=== PATIENT | female | born 1995 | race Caucasian/White ===

== ENCOUNTER 2018-03-20 09:23 | Emergency (ER) | payer BC ==
--- NOTE | 2018-03-20 10:34 | UC ---
Respiratory Complaint HPI - HPI Summary HPI Summary: The patient is a 23-year-old female with a 3 week history of nasal congestion postnasal dripand frontal headache. She denies any chest pain or shortness of breath. She has not been febrile. She has had chills. She denies any nausea vomiting or diarrhea. She has had a cough which has been productive at times. - History of Current Complaint Chief Complaint: UCRespiratory Stated Complaint: SORE THROAT, CHILLS Time Seen by Provider: 03/20/18 10:24 Hx Obtained From: Patient Onset/Duration: Gradual Onset, Lasting Weeks - 3 Timing: Constant Severity Initially: Mild Severity Currently: Moderate Pain Intensity: 6 Pain Scale Used: 0-10 Numeric Character: Cough: Productive Aggravating Factors: Nothing Alleviating Factors: Nothing Associated Signs And Symptoms: Positive: Chills, Nasal Congestion, Hoarseness, Sinus Discomfort - Allergies/Home Medications Allergies/Adverse Reactions: Allergies Allergy/AdvReac Type Severity Reaction Status Date / Time No Known Allergies Allergy Verified 03/20/18 10:14 Home Medications: Home Medications D-Methorphan/PE/Acetaminophen [Daytime Cold-Flu Relief Sftgl] 1 each PO Q6HR PRN 03/20/18 [History Confirmed 03/20/18] Dm/Acetaminophen/Doxylamine [Nighttime Cold-Flu Rlf Sftgl] 1 each PO Q6HR PRN [History Confirmed 03/20/18] guaiFENesin LIQ* [Robitussin*] 10 ml PO Q4H PRN 03/20/18 [History Confirmed ] PMH/Surg Hx/FS Hx/Imm Hx Previously Healthy: Yes - Family History Known Family History: Positive: Hypertension Negative: Respiratory Disease - Social History Alcohol Use: Occasionally Substance Use Type: None Smoking Status (MU): Never Smoked Tobacco Review of Systems All Other Systems Reviewed And Are Negative: Yes Constitutional: Positive: Chills, Fatigue Skin: Positive: Negative Eyes: Positive: Negative ENT: Positive: Sore Throat, Ear Ache, Nasal Discharge, Sinus Congestion, Sinus Pain/Tenderness Respiratory: Positive: Cough Cardiovascular: Positive: Negative Gastrointestinal: Positive: Negative Genitourinary: Positive: Negative Motor: Positive: Negative Neurovascular: Positive: Negative Musculoskeletal: Positive: Negative Neurological: Positive: Negative Psychological: Positive: Negative Is Patient Immunocompromised?: No Physical Exam Triage Information Reviewed: Yes Appearance: Well-Appearing, No Pain Distress, Well-Nourished Vital Signs: Initial Vital Signs Temp 98.0 F 03/20/18 10:15 Pulse 95 03/20/18 10:15 Resp 18 03/20/18 10:15 BP 123/83 03/20/18 10:15 Pulse Ox 96 03/20/18 10:15 Vital Signs Reviewed: Yes Eyes: Positive: Conjunctiva Clear ENT: Positive: Hearing grossly normal, Nasal congestion, Nasal drainage, TMs normal - L, TM bulging - R, Tonsillar swelling, Hoarse voice, Sinus tenderness, Uvula midline. Negative: Tonsillar exudate, Trismus, Muffled voice Dental Exam: Normal Neck: Positive: Supple, Nontender, No Lymphadenopathy Respiratory: Positive: Lungs clear, Normal breath sounds, No respiratory distress, No accessory muscle use Cardiovascular: Positive: RRR, No Murmur Musculoskeletal Exam: Normal Musculoskeletal: Positive: ROM Intact, No Edema Neurological Exam: Normal Psychological Exam: Normal Skin Exam: Normal UC Diagnostic Evaluation - Laboratory O2 Sat by Pulse Oximetry: 96 - normal/not hypoxic Respiratory Course/Dx - Differential Dx/Diagnosis Provider Diagnosis: Acute sinusitis Discharge - Sign-Out/Discharge Documenting (check all that apply): Patient Departure All imaging exams completed and their final reports reviewed: No Studies - Discharge Plan Condition: Stable Disposition: HOME Prescriptions: Amoxicillin PO (*) [Amoxicillin 875 MG (*)] 875 mg PO BID #14 tab Benzonatate CAP* [Tessalon CAP*] 100 - 200 mg PO TID PRN #28 cap PRN Reason: Cough Fluticasone NASAL SPRAY 50MCG* [Flonase NASAL SPRAY 50MCG*] 2 spray BOTH NARES BID #1 btl Patient Education Materials: Sinusitis (ED) Forms: *Work Release Referrals: No Primary Care Phys,NOPCP [Primary Care Provider] - Additional Instructions: warm facial compresses saline nasal spray (OTC) 2 sprays each nostril twice daily about 5 minutes after this use your flonase (2 sprays each nostril twice daily) AFRIN NASAL SPRAY (OTC) 2 sprays each nostril 3x day for three days only Recheck BP in 2-12 weeks pre hypertension may be due to your illness - Billing Disposition and Condition Condition: STABLE Disposition: Home
== END 2018-03-20 10:54 | disposition home or self-care (01) ==
LOC: UCCORT 09:23
DX: J01.90 Acute sinusitis, unspecified (principal); J02.9 Acute pharyngitis, unspecified
CPT/HCPCS: 99202; G0463